=== PATIENT | female | born 1975 | race Caucasian/White ===

== ENCOUNTER 2016-03-13 10:03 | Emergency (ER) | payer OTHER ==
[~2016-03-13] VITALS: Ht 162.6 cm; Wt 77.1 kg
[~2016-03-13 10:03] MED LIST: ABILIFY5 M1 PO; LEXAPRO10 M1 PO; TOPAMAX100 M1 PO; TOPAMAX25 M3 PO
[2016-03-13] MEDS ORDERED: ATIVAN1 M1 PO (11:29)
[2016-03-13] MEDS ORDERED: ONDANSETRON HCL4 MG PO (11:29)
[2016-03-13] MEDS ORDERED: MECLIZINE HCL25 MG PO (11:29)
--- NOTE | 2016-03-13 11:50 | ED GENERAL ADULT ---
History of Present Illness General Chief Complaint: General Adult Stated Complaint: TINGLING IN RT SIDE OF BODY/HX OF MONO Source: patient, family Exam Limitations: no limitations Allergies Coded Allergies: Penicillins (Mild, RASH 03/13/16) cefaclor (Mild, RASH 03/13/16) Reconcile Medications Aripiprazole (Abilify) 5 MG TABLET 1 TAB PO QPM DEPRESSION (Reported) Escitalopram Oxalate (Lexapro 10MG) 10 MG TABLET 1 TAB PO DAILY DEPRESSION ( Reported) Lorazepam (Ativan) 1 MG TABLET 1 TAB PO QPM sleep (Reported) Meclizine HCl 25 MG TABLET 1 TAB PO BID DIZZNESS (Reported) Methylprednisolone. (Medrol) 4 MG TAB.DS.PK 1 DP PO AD INFLAMMATION 6 on day 1 then reduce by one tablet daily until gone Ondansetron HCl 4 MG TABLET 1 TAB PO BID NAUSEA (Reported) Topiramate 25 MG TABLET 1 TAB PO DAILY MIGRANES (Reported) Topiramate 100 MG TABLET 1 TAB PO QPM MIGRANES (Reported) Triage Note: C/O R SIDED FACIAL NUMBNESS X 6 HOURS, WITH R ARM TINGLING AND R LEG WEAKNESS. STATES SHE WAS RECENTLY DXD WITH MONONUCLEOSIS, (01/30) AND A KIDNEY INFECTION 3 WEEKS AGO. HASNT FELT WELL SINE. ALSO C/O NAUSEA AND FEELING "SPACEY". SENT BY DR. JEFF. Triage Nurses Notes Reviewed? yes Onset: Gradual Duration: week(s): (4) Timing: no prior history Injury Environment: home Severity: moderate Severity Numbers: 7 No Modifying Factors: none : No Patient currently breastfeeds: No HPI: Patient is a 40-year-old female with history of anxiety depression only taking lorazepam 1 mg at night presenting to the emergency department with multiple complaints. Patient reports that she's had a 14 pound weight loss unintentionally over the past one month, intermittent fevers, malaise, also reports facial rash. She came into the ER today specifically because she woke up with right-sided tingling numbness and weakness on her face, arm. She reports that it feels heavy. She reports that she's been weak over the past 4 weeks. She's had multiple blood tests, she was diagnosed with mono in December when she was asymptomatic but just developed the symptoms 4 weeks ago. She's also had a Lyme titer test. She saw an ENT for the dizziness she was experiencing an ENT since she was okay. Patient denies any travel. No sick contacts. Denies recent antibiotic use. No diarrhea. She does report that she 's been constipated over the past couple days. She is also reporting abdominal pain that started a few weeks ago on the left side is now has resolved. She was also sent for CAT scan of her abdomen as well as an ultrasound which both came back negative. Patient has been seen at other hospitals in the emergency department as well and everything came back okay with workups so they were discharged home. She also reports intermittent in confusion. She's been leaving the stove on and the refrigerator open. That hasn't reports that this is new for her. (AVANI VIEIRA) Vital Signs & Intake/Output Vital Signs & Intake/Output Vital Signs Date Time Temp Pulse Resp B/P Pulse O2 O2 Flow FiO2 Ox Delivery Rate 03/13 1337 98.5 61 18 123/82 99 Room Air 03/13 1031 98.4 89 18 123/85 99 Room Air Past History Travel History Traveled to [place] past 21 day No Medical History Any Pertinent Medical History? see below for history Psychiatric: anxiety, depression Surgical History Surgical History: non-contributory Psychosocial History What is your primary language Kenyan Tobacco Use: Never used ETOH Use: denies use Family History Hx Contributory? No (AVANI VIEIRA) Review of Systems Review of Systems Constitutional: Reports: fever, malaise, weakness. Comments Review of systems: See HPI, All other systems negative. Constitutional, positive chills, fever and weight loss HEENT: No visual changes no sore throat no congestion Cardiovascular: No chest pain ,palpitation , orthopnea or ankle swelling Skin, no jaundice Respiratory: No dyspnea cough sputum or hemoptysis GI: No nausea no vomiting : No dysuria No hematuria Muscle skeletal: no back pain, no neck pain, Neurologic: No numbness Psych: No stress anxiety or depression,. Heme/endocrine: No bruising no bleeding no polyuria or polydipsia Immunology: No splenectomy or history of AIDS (AVANI VIEIRA) Physical Exam Physical Exam General Appearance: well developed/nourished, no apparent distress, alert, awake , comfortable Comments: Well-developed well-nourished person in no acute distress HEENT: extraocular motion intact, no nystagmus. Pupils equally round and reactive to light and accommodation. Nose is atraumatic. External auditory canal and Tympanic membranes clear. Pharynx normal. No swelling or edema. Slightly dry oral mucosa. Neck: Supple, positive cervical lymphadenopathy, nontender, normal range of motion without pain or tenderness. Negative meningeal signs. Back: Nontender, no CVA tenderness. Full range of motion Cardiovascular: Regular rate and rhythms no murmurs rubs or gallops, normal JVP Respiratory: Chest nontender. No respiratory distress.breath sounds clear to auscultation bilaterally Abdomen: Soft, minimal tenderness in the upper quadrants bilaterally, no rebound or guarding, nondistended, no appreciable organomegaly. Normal bowel sounds. No ascites Extremity: No edema, no calf tenderness to palpation, normal and equal pulses. Full range of motion of all Shoney's without difficulty or pain. Muscular strength is essentially 5 out of 5 in all extremities prescription strength is equal and symmetric bilaterally. Neuro: Alert oriented x3, motor sensory normal, cranial nerves II through XII grossly intact. Cerebellar testing is unremarkable. Gait appears to be grossly intact. Skin: MallAr erythematous rash noted on the face, blanchable. Psych: Mood and affect is normal, able to recall 2 of 3 words with memory testing. Core Measures ACS in differential dx? No CVA/TIA Diagnosis: No Severe Sepsis Present: No Septic Shock Present: No (PING BARBA,AVANI) Progress Differential Diagnoses I considered the following diagnoses in my evaluation of the patient: Lupus, other autoimmune process, Lyme disease, dehydration, acute kidney injury, CVA, TIA, MS Diagnostic Imaging: Viewed by Me: CT Scan. Discussed w/RAD: CT Scan. Radiology Impression: ct HEAD: nO ACUTE PROCESS. Initial ED EKG: none Comments: 03/13/2016 12:33:42 PM on arrival patient no acute distress, neurologically intact no focal deficits on exam. Patient does have Maller rash. Patient complaining about several vague symptoms that have been going on for the past one month. No family history of autoimmune process. She was diagnosed with mono which could attribute to most of the symptoms. We will retest her mono. Patient will get CBC, CMP, and a test, CT head to rule out CVA although unlikely. No family history of CVA. 03/13/2016 3:04:34 PM patient medicated with IV fluids. 03/13/2016 3:34:47 PM patient informed of all lab work results. A nasal pending. Lyme is still pending. Patient will be treated with Medrol Dosepak. Due to the constitution of several different systems affected by her symptoms it is possible that this patient has an autoimmune process starting. Patient was seen and evaluated by Dr. Bermudez and he agrees. Patient will follow up with endocrinology. She'll also follow up with her primary care physician. This likely needs further investigation as to why her symptoms are starting. (PING BARBA,AVANI) Plan of Care: Orders Procedure Date/time Status LACTIC ACID 03/13 1449 Active Add-on Test (ER Only) 03/13 1302 Active Add-on Test (ER Only) 03/13 1258 Active ANTINUCLEAR ANTIBODY 03/13 1205 Active URINALYSIS 03/13 1149 Complete LYME TITRE 03/13 1149 Active LACTIC ACID 03/13 1149 Complete MONOSPOT 03/13 1149 Active HUMAN BETA HCG SCREEN 03/13 1149 Complete WESTERGREN SED RATE 03/13 1149 Complete C-REACTIVE PROTEIN 03/13 1149 Complete COMPREHENSIVE METABOLIC PANEL 03/13 1149 Complete CBC WITHOUT DIFFERENTIAL 03/13 1149 Complete Laboratory Tests 03/13/16 1212: Urine Color YEL, Urine Clarity HAZY H, Urine pH 6.0, Ur Specific [place] 1.025, Urine Protein TRACE H, Urine Ketones 40 H, Urine Nitrite NEG, Urine Bilirubin NEG@ICTO, Urine Urobilinogen 0.2, Ur Leukocyte Esterase NEG, Ur Microscopic SEDIMENT EXAMINED, Urine RBC 1-3, Urine WBC 1-3 H, Ur Epithelial Cells MANY H, Urine Mucus MANY H, Urine Hemoglobin NEG, Urine Glucose NEG 03/13/16 1205: Anion Gap 15, Estimated GFR > 60, BUN/Creatinine Ratio 23.3, Glucose 90, Lactic Acid 0.9, Calcium 10.0, Total Bilirubin 1.0, AST 23, ALT 33, Alkaline Phosphatase 73, C-Reactive Prot, Quant < 0.5, Total Protein 7.7, Albumin 4.7, Globulin 3.0, Albumin/Globulin Ratio 1.6, Total Beta HCG NEGATIVE, CBC w Diff NO MAN DIFF REQ, RBC 5.21, MCV 79.4 L, MCH 26.4 L, RDW 13.6, MPV 11.1 H, Gran % 63.0, Lymphocytes % 26.8, Monocytes % 5.2, Eosinophils % 4.6, Basophils % 0.4, Absolute Granulocytes 4.8, Absolute Lymphocytes 2.0, Absolute Monocytes 0.4, Absolute Eosinophils 0.3, Absolute Basophils 0, PUBS MCHC 33.3, ESR Westergren 20, HARISH Titer Pending, Anti-Nuclear Antibody Pending, Lyme Disease Antibody Pending, Infectious Wake Titer NEGATIVE Departure Departure Time of Disposition: 1524 Disposition: HOME OR SELF CARE Condition: Stable Clinical Impression Primary Impression: Weakness Secondary Impressions: Rash Referrals: HOWIE PALOMO,KAYLA Boland (PCP/Family) Additional Instructions: Follow-up with your primary care physician and also follow up with endocrinology call to make an appointment. Take menstrual dosepak as prescribed and was sent here pharmacy. Return for worsening symptoms or concerns. Increase fluids. Departure Forms: Customer Survey General Discharge Information Prescriptions: Current Visit Scripts Methylprednisolone. (Medrol) 1 DP PO AD #1 DP 6 on day 1 then reduce by one tablet daily until gone (AVANI VIEIRA) PA/MATHEMATICAL ENGINEERING TECHNICIAN Co-Sign Statement Statement: ED Attending supervision documentation- [X] I saw and evaluated the patient. I have also reviewed all the pertinent lab results and diagnostic results. I agree with the findings and the plan of care as documented in the PA's/MATHEMATICAL ENGINEERING TECHNICIAN's documentation. [] I have reviewed the ED Record and agree with the PA's/MATHEMATICAL ENGINEERING TECHNICIAN's documentation. [] Additions or exceptions (if any) to the PAs/MATHEMATICAL ENGINEERING TECHNICIAN's note and plan are summarized below: [] (LANIE PALOMO,DANGELO Westbrook) Critical Care Note Critical Care Note Critical Care Time: non-applicable (AVANI VIEIRA)
[2016-03-13 13:25] LABS: ABSOLUTE BASOPHIL COUNT 0 /CUMM (0.0-0.2); ABSOLUTE EOSINOPHIL COUNT 0.3 /CUMM (0.0-0.7); ABSOLUTE GRANULOCYTE CT 4.8 /CUMM (1.4-6.5); ABSOLUTE MONOCYTE COUNT 0.4 /CUMM (0.10-0.60); BASOPHIL % 0.4 % (0.0-2.0); EOSINOPHIL % 4.6 % (0-5); HEMATOCRIT 41.4 % (37-47); MEAN CORPUSCULAR HGB 26.4 PG (27.0-31.0); MEAN CORPUSCULAR HGB CONC 33.3 G/DL (33.0-37.0); MEAN CORPUSCULAR VOLUME 79.4 FL (81.0-99.0); MEAN PLATELET VOLUME 11.1 FL (7.4-10.4); PLATELET COUNT 266 /CUMM (130-400); RBC DISTRIBUTION WIDTH 13.6 % (11.5-14.5); RED BLOOD CELL CT 5.21 /CUMM (4.20-5.40); WHITE BLOOD CELL COUNT 7.6 /CUMM (4.8-10.8)
--- NOTE | 2016-03-13 13:54 | CT SCAN REPORT ---
EXAMINATION: CT HEAD WITHOUT CONTRAST CLINICAL INFORMATION: Confusion and right-sided weakness. COMPARISON: 05/05/2013. TECHNIQUE: Contiguous axial imaging was performed from the skull base to vertex without intravenous administration of contrast. DLP: 600.7 mGy-cm. FINDINGS: There is no evidence of acute intracranial hemorrhage or territorial infarction. No abnormal mass effect or midline shift is seen. Rowe to white matter differentiation is well preserved. No extra-axial fluid collections are identified. The ventricles are normal in size. There is no abnormal attenuation within the brain parenchyma. The osseous structures and soft tissues are normal. The mastoid air cells and visualized portions of the paranasal sinuses are well aerated. IMPRESSION: No acute intracranial pathology.
[2016-03-13] MEDS ORDERED: MEDROL4 M2 PO (15:26)
[2016-03-13 15:27] VITALS: BP 120/78
== END 2016-03-13 15:28 ==
LOC: ERH 10:03
PROVIDERS: Physician Assistant
DX: R53.1 Weakness (principal); R21 Rash and other nonspecific skin eruption; R50.9 Fever, unspecified; R41.0 Disorientation, unspecified
CPT/HCPCS: 86618; 81001; 96360; 96361

== ENCOUNTER 2016-04-05 13:01 | Emergency (ER) | payer OTHER ==
[~2016-04-05] VITALS: Ht 162.6 cm; Wt 74.8 kg
[~2016-04-05 13:01] MED LIST changes: +ATIVAN1 M1 PO; +MECLIZINE HCL25 MG PO; +MEDROL4 M2 PO; +ONDANSETRON HCL4 MG PO
[2016-04-05 14:36] LABS: ABSOLUTE BASOPHIL COUNT 0 /CUMM (0.0-0.2); ABSOLUTE EOSINOPHIL COUNT 0.3 /CUMM (0.0-0.7); ABSOLUTE LYMPH COUNT 2.2 /CUMM (1.2-3.4); ABSOLUTE MONOCYTE COUNT 0.5 /CUMM (0.10-0.60); BASOPHIL % 0.4 % (0.0-2.0); EOSINOPHIL % 5.2 % (0-5); GRANULOCYTE % 50.6 % (42.2-75.2); HEMATOCRIT 39.3 % (37-47); MEAN CORPUSCULAR HGB 26.6 PG (27.0-31.0); MEAN CORPUSCULAR HGB CONC 33.3 G/DL (33.0-37.0); MEAN CORPUSCULAR VOLUME 79.7 FL (81.0-99.0); MEAN PLATELET VOLUME 9.3 FL (7.4-10.4); PLATELET COUNT 282 /CUMM (130-400); RBC DISTRIBUTION WIDTH 14.4 % (11.5-14.5); RED BLOOD CELL CT 4.94 /CUMM (4.20-5.40)
--- NOTE | 2016-04-05 14:49 | RADIOLOGY REPORT ---
EXAMINATION: XR CHEST CLINICAL INFORMATION: Chest pain COMPARISON: 04/19/2012. TECHNIQUE: 2 views of the chest were obtained. FINDINGS: Cardiac and mediastinal silhouettes are normal in appearance. Lungs and pleural spaces are clear. No acute findings are demonstrated. There is a prior healed right mid to distal clavicle fracture unchanged from prior. IMPRESSION: No acute cardiopulmonary process is identified.
[2016-04-05 15:24] VITALS: BP 124/81
--- NOTE | 2016-04-05 16:27 | ED CARDIAC/CP/PALPITATIONS ---
History of Present Illness General Chief Complaint: General Adult Stated Complaint: "JARROD BEEN SICK FOR 2 MONTHS" CHEST PAIN Source: patient, family Exam Limitations: no limitations Vital Signs & Intake/Output Vital Signs & Intake/Output Vital Signs Date Time Temp Pulse Resp B/P Pulse O2 O2 Flow FiO2 Ox Delivery Rate 04/05 1524 97.8 88 20 124/81 98 Room Air 04/05 1425 98.0 94 18 138/90 99 Room Air 04/05 1312 97.0 90 18 146/106 98 Room Air Allergies Coded Allergies: lamotrigine (From LAMICTAL) (Severe, RASH 04/05/16) Penicillins (Mild, RASH 03/13/16) cefaclor (Mild, RASH 03/13/16) Reconcile Medications Aripiprazole (Abilify) 5 MG TABLET 1 TAB PO DAILY DEPRESSION (Reported) Escitalopram Oxalate (Lexapro) 10 MG TABLET 1 TAB PO DAILY DEPRESSION ( Reported) Topiramate (Topamax) 25 MG TABLET 1 TAB PO DAILY HEADACHE (Reported) Topiramate (Topamax) 100 MG TABLET 1 TAB PO QPM HEADACHE (Reported) Triage Note: PT STATES THAT SHE HAS BEEN BEING WORKED UP FOR MS/LUPUS/STROKE, WENT TO [facility] AND SHE WAS ADMITTED FOR QUESTIONABLE AUTO IMMUNE DISEASE. STATES THAT SHE HAS APPOINTMENT TOMORROW WITH DR TREJO FOR FOLLOW UP BUT SHE WAS CONCERNED ABOUT THE CHEST PAIN. PT ALSO HAS FOLLOW UP WITH NEUROLOGIST. PT STATES THAT L SIDE CHEST PAIN HAS BEEN COMING AND GOING SINCE LAST PM AND THAT SHE HAS TIGHTNESS IN HER R SIDE CHEST. NSR ON EKG, DENIES SOB. Triage Nurses Notes Reviewed? yes : No Patient currently breastfeeds: No HPI: 40 yo F presenting with chest pain. Chest pain since last night, constant with fluctuating intensity, tightness sensation, more severe last night, mild intensity thie morning, worse with laying flat, non-exertional, non-pleuritic, associated dizzienss (described as lightheadedness, no vertigo). Denies associated fevers, chills, palpitations, SOB, N/V, diaphoresis, LE swelling/ pain. Patient has 2.5 month Hx of neurologic Sx, right sided parasthesias/ weakness, multiple admissions at [facility] with outpatient neurology work-up, MRI head/c-spine negative, MRI t-spine and LP pending, scheduled to see PMD tomorrow. (FAROOQ CEDEÑO MD) Past History Travel History Traveled to [place] past 21 day No Medical History Any Pertinent Medical History? see below for history Neurological: NONE EENT: NONE Cardiovascular: NONE Respiratory: NONE Gastrointestinal: NONE Hepatic: NONE Renal: NONE Musculoskeletal: NONE Psychiatric: anxiety, depression Endocrine: NONE Blood Disorders: NONE History of CDIFF: No Isolation History: Standard Surgical History Surgical History: non-contributory Psychosocial History What is your primary language Estonian Tobacco Use: Never used ETOH Use: denies use Illicit Drug Use: denies illicit drug use Family History Hx Contributory? Yes (FAROOQ CEDEÑO MD) Review of Systems Review of Systems Constitutional: Reports: weakness. Denies: chills, fever. EENTM: Reports: no symptoms. Respiratory: Denies: cough, orthopnea, short of breath, wheezing. Cardiovascular: Reports: chest pain. Denies: edema, orthopena, palpitations, syncope. GI: Denies: abdominal pain, diarrhea, nausea, bloody stool, vomiting. Genitourinary: Reports: no symptoms. Musculoskeletal: Reports: no symptoms. Skin: Reports: no symptoms. Neurological/Psychological: Reports: paresthesia, weakness, other (Dizziness). Hematologic/Endocrine: Reports: no symptoms. Immunologic/Allergic: Reports: no symptoms. All Other Systems: Reviewed and Negative (FAROOQ CEDEÑO MD) Physical Exam Physical Exam General Appearance: well developed/nourished, no apparent distress, alert, awake , comfortable Head: normal appearance Eyes: Bilateral: normal appearance. Ears, Nose, Throat: normal ENT inspection Neck: normal inspection, supple, full range of motion Respiratory: normal breath sounds, no respiratory distress, lungs clear Cardiovascular: regular rate/rhythm, normal peripheral pulses Gastrointestinal: normal bowel sounds, soft, non-tender Back: normal inspection, normal range of motion Neurologic/Psych: Endorses RUE/RLE parasthesias RUE/RLE strength 4/5 Skin: intact Core Measures ACS in differential dx? Yes Severe Sepsis Present: No Septic Shock Present: No (FAROOQ CEDEÑO MD) Progress Differential Diagnosis: costochondritis, musculoskeletal pain, myocarditis, pericarditis, pneumonia, pneumothorax, pulmonary embolism, PUD/GERD Plan of Care: Orders Procedure Date/time Status TROPONIN LEVEL 04/05 1409 Complete D-DIMER 04/05 1409 Complete CBC WITHOUT DIFFERENTIAL 04/05 1409 Complete BASIC METABOLIC PANEL 04/05 1409 Complete EKG 04/05 1303 Active Laboratory Tests 04/05/16 1423: Anion Gap 11, Estimated GFR > 60, BUN/Creatinine Ratio 18.3, Glucose 90, Calcium 9.9, Troponin I < 0.01, D-Dimer < 200, CBC w Diff NO MAN DIFF REQ, RBC 4.94, MCV 79.7 L, MCH 26.6 L, RDW 14.4, MPV 9.3, Gran % 50.6, Lymphocytes % 36.2, Monocytes % 7.6, Eosinophils % 5.2 H, Basophils % 0.4, Absolute Granulocytes 3.0, Absolute Lymphocytes 2.2, Absolute Monocytes 0.5, Absolute Eosinophils 0.3, Absolute Basophils 0, PUBS MCHC 33.3 Physician MDM: 40 yo F recent undifferentiated neurologic process presenting with left sided chest tightness since last night. VSS, physical exam as above. DDx: Pericarditis, PNA, PTX, MSK, ACS, PE, low concern for aortic pathology. ECG sinus rhythm, new TWI in V2, otherwise unremarkable. troponin <0.01. CBC, BMP unermarkable. Bedside U/S without pericardial effusion, normal EF, no evidence of right heart strain. D-Dimer negative. CXR without consolidation or airspace disease. On re-examination patient resting comfortably, ambulatory at baseline. D/Ajn with return precuations, f/u with PMD already scheduled for tomorrow. D/W Dr. Bermudez. (DAVIDSON PALOMO,FAROOQ) Initial ED EKG: normal sinus rhythm, TWI V2 (FAROOQ CEDEÑO MD) Departure Departure Disposition: HOME OR SELF CARE Condition: Stable Clinical Impression Primary Impression: Chest pain Referrals: MAYA PALOMO,ROBIN (PCP/Family) Departure Forms: Customer Survey General Discharge Information (DAVIDSON PALOMO,FAROOQ) Resident Co-Sign Statement Statement: ED Attending supervision documentation- [X] I saw and evaluated the patient. I have also reviewed all the pertinent lab results and diagnostic results. I agree with the findings and the plan of care as documented in the Resident's documentation. [] I have reviewed the ED Record and agree with the Resident's documentation. [] Additions or exceptions (if any) to the Resident's note and plan are summarized below: [] (LANIE PALOMO,DANGELO Westbrook) Critical Care Note Critical Care Note Critical Care Time: non-applicable (DAVIDSON PALOMO,FAROOQ)
== END 2016-04-05 16:36 ==
LOC: ERH 13:01
PROVIDERS: Student in an Organized Health Care Education/Training Program
DX: R07.89 Other chest pain (principal)
CPT/HCPCS: 93005; 93010